=== PATIENT | female | born 1995 | race Caucasian/White ===

== ENCOUNTER 2016-08-14 15:59 | Emergency (ER) | payer SELFPAY ==
[~2016-08-14] VITALS: Ht 165.1 cm; Wt 59.0 kg
[2016-08-14 17:14] LABS: NEG OBC UR NEG; POS OBC UR POS
[2016-08-14 17:19] LABS: BILIRUBIN,URINE SMALL (NEG); GLUCOSE,URINE NEGATIVE (NEG); NITRITE,URINE NEGATIVE (NEG); PROTEIN,URINE 100 mg/dL (NEG-TRACE); UROBILINOGEN,URINE 0.2 mg/dL (0.2 mg/dL)
[2016-08-14] MEDS ORDERED: ONDANSETRON PF 4 MG/2 ML VIAL. IV ONE (17:30)
[2016-08-14] MEDS ORDERED: IV NORMAL SALINE 500ML BAG 500 ML IV ONE ×2 (17:30→19:15)
[2016-08-14] MEDS ORDERED: KETOROLAC TROMETHAMINE 30 MG/ML SYRINGE. IV ONE (17:30)
[2016-08-14 17:47] LABS: BASO # 0.1 x10^3/uL (0.0-0.2); BASO % 2 % (0-3); EOS % 5 % (0-3); HEMATOCRIT 38.8 % (36.0-47.0); HEMOGLOBIN 12.8 g/dL (12.0-15.5); LYMPH # 3.1 x10^3/uL (1.0-4.8); LYMPH % 32 % (24-48); MEAN CORPUSCULAR HEMOGLOBIN 27 pg (25-35); MEAN CORPUSCULAR HGB CONC 33 g/dL (31-37); MEAN CORPUSCULAR VOLUME 81 fL (79-100); MONO % 8 % (0-9); NEUT % 54 % (31-73); PLATELET COUNT 273 x10^3/uL (140-400); RED BLOOD COUNT 4.76 x10^6/uL (3.50-5.40); RED CELL DISTRIBUTION WIDTH 14.7 % (11.5-14.5)
[2016-08-14 17:48] LABS: BACTERIA,URINE MANY /HPF (0-FEW); SQUAMOUS EPITHELIAL CELL,UR MANY /LPF; WBC,URINE TNTC /HPF (0-4)
[2016-08-14 18:03] LABS: CALCIUM 9.3 mg/dL (8.5-10.1); GFR 68.7; POTASSIUM 3.7 mmol/L (3.5-5.1)
--- NOTE | 2016-08-14 18:07 | EKG ---
[facility] [address] [place] [address] Test Date: 2016-08-14 Test Time: 17:38:33 Pat Name: MERRILL ALMANZAR Department: Room: Gender: F Personnel Technician: : 1995 Requested By: ROMARIO COOL Order Number: [id number] Reading MD: Mikey Kent Measurements Intervals [place] Rate: 92 P: 60 GA: 126 QRS: 75 QRSD: 78 T: 40 QT: 350 QTc: 438 Interpretive Statements SINUS RHYTHM Electronically Signed On 08-15-2016 7:45:12 [employer] by Mikey Kent
[2016-08-14] MEDS ORDERED: CONTRAST GIVEN MC PRN (18:15)
[2016-08-14] MEDS ORDERED: IOHEXOL 300 MG/ML 75 ML VIAL IV ONE (18:15)
[2016-08-14] MEDS ORDERED: CEFTRIAXONE 1GM IVPB FOR OMNI 50 ML IV ONE (19:15)
--- NOTE | 2016-08-14 19:17 | RAD ---
CT abdomen pelvis with contrast Indication: Right and left lower quadrant abdominal pain. Axial imaging through the abdomen and pelvis was performed after the administration of intravenous contrast. No prior studies are available for comparison. The lung bases are clear. The liver and gallbladder are unremarkable. The pancreas and spleen are unremarkable. No adrenal mass is detected. The kidneys are unremarkable. The small and large bowel loops are normal caliber. There is no ascites. The appendix is visualized and unremarkable. There is a large cyst in the right adnexa measuring 3.7 centimeters in diameter and likely an ovarian cyst. The uterus and bladder are unremarkable. Trace free fluid is seen. Impression: 3.7 centimeter right adnexal cyst, likely ovarian. The study is otherwise unremarkable. Electronically signed by: Santiago Billings MD (Aug 14, 2016 19:16:28)
[2016-08-14] MEDS ORDERED: IBUP-1060 PO (19:36)
[2016-08-14] MEDS ORDERED: NITR100C62 PO (19:36)
--- NOTE | 2016-08-14 19:36 | PHYS DOC ---
Past Medical History Past Medical History: Anxiety, Asthma, Bipolar, Depression, Other Additional Past Medical Histor: SCOLIOSIS, PTSD Past Surgical History: Other Additional Past Surgical Histo: 'SOME SURGERY ON MY HEAD WHEN I WAS A KID' Alcohol Use: None Drug Use: Marijuana, Methamphetamine Social History Narrative: 'I DO EVERYTHING BUT HEROIN' Adult General Chief Complaint Chief Complaint: DIZZY/LIGHT HEADED HPI HPI 21-year-old female who is had ongoing right lower abdominal pain with dizziness and lightheadedness today. Patient was in the process of checking in for med 3 have as she admits to using methamphetamines earlier today as well as benzodiazepines. She has had history of meth abuse in the past. Currently she denies any suicidal or homicidal ideation. She rates her pain approximately a 7 out of 10 on the pain scale localized the right lower quadrant. She denies any history of abdominal surgeries. She also states she has some mild chest discomfort and is having mild anxiety symptoms. Review of Systems Review of Systems Constitutional: Denies fever or chills [] Eyes: Denies change in visual acuity, redness, or eye pain [] HENT: Denies nasal congestion or sore throat [] Respiratory: Denies cough or shortness of breath [] Cardiovascular: No additional information not addressed in HPI [] GI: Has abdominal pain, denies nausea, denies vomiting, bloody stools or diarrhea [] : Denies dysuria or hematuria [] Musculoskeletal: Denies back pain or joint pain [] Integument: Denies rash or skin lesions [] Neurologic: Denies headache, focal weakness or sensory changes [] Endocrine: Denies polyuria or polydipsia [] Current Medications Current Medications Current Medications Medications (Trade) Dose Ordered Sig/Brissa Start Time Stop Time Status Last Admin Dose Admin Ceftriaxone Sodium (Rocephin 1gm Ivpb For Omni) 50 ml @ 100 mls/hr 1X ONCE 08/14/16 19:15 08/14/16 19:44 Info 1 each 1 each PRN DAILY PRN 08/14/16 18:15 08/16/16 18:14 Iohexol (Omnipaque 300 Mg/ml) 75 ml 1X ONCE 08/14/16 18:15 08/14/16 18:16 DC 08/14/16 18:49 75 ML Ketorolac Tromethamine 30 mg 30 mg 1X ONCE 08/14/16 17:30 08/14/16 17:31 DC 08/14/16 18:13 30 MG Ondansetron HCl (Zofran) 4 mg 1X ONCE 08/14/16 17:30 08/14/16 17:31 DC 08/14/16 18:13 4 MG Sodium Chloride 500 ml @ 500 mls/hr 1X ONCE 08/14/16 19:15 08/14/16 20:14 Sodium Chloride (Iv Sodium Chloride 0.9% 500ml Bag) 500 ml @ 500 mls/hr 1X ONCE 08/14/16 17:30 08/14/16 18:29 DC 08/14/16 18:14 500 MLS/HR Allergies Allergies Allergies Coded Allergies Type Severity Reaction Last Updated Verified levofloxacin Allergy Intermediate Swelling 08/14/16 Yes Physical Exam Physical Exam Constitutional: Well developed, well nourished, no acute distress, non-toxic appearance. [] HENT: Normocephalic, atraumatic, bilateral external ears normal, oropharynx moist, no oral exudates, nose normal. [] Eyes: PERRLA, EOMI, conjunctiva normal, no discharge. [] Neck: Normal range of motion, no tenderness, supple, no stridor. [] Cardiovascular:Heart rate tachycardic with regular rhythm, no murmur [] Lungs & Thorax: Bilateral breath sounds clear to auscultation [] Abdomen: Bowel sounds normal, soft, moderate tenderness to RLQ, no masses, no pulsatile masses. [] Skin: Warm, dry, no erythema, no rash. [] Back: No tenderness, no CVA tenderness. [] Extremities: No tenderness, no cyanosis, no clubbing, ROM intact, no edema. [] Neurologic: Alert and oriented X 3, normal motor function, normal sensory function, no focal deficits noted. [] Psychologic: Affect normal, judgement normal, mood normal. [] Current Patient Data Vital Signs Vital Signs Date Time Temp Pulse Resp B/P Pulse Ox O2 Delivery O2 Flow Rate FiO2 08/14/16 18:24 104 20 101/52 98 Room Air 08/14/16 16:41 98.3 98.3 Lab Values Laboratory Tests Test 08/14/16 16:33 08/14/16 17:29 Urine Collection Type Void Urine Color Dk yellow Urine Clarity Cloudy Urine pH 6.0 Urine Specific [place] >=1.030 Urine Protein 100mg/dL (NEG-TRACE) Urine Glucose (UA) Negativemg/dL (NEG) Urine Ketones (Stick) Negativemg/dL (NEG) Urine Blood Moderate (NEG) Urine Nitrite Negative (NEG) Urine Bilirubin Small (NEG) Urine Urobilinogen Dipstick 0.2mg/dL (0.2 mg/dL) Urine Leukocyte Esterase Moderate (NEG) Urine RBC 1-2/HPF (0-2) Urine WBC Tntc/HPF (0-4) Urine Squamous Epithelial Cells Many/LPF Urine Bacteria Many/HPF (0-FEW) Urine Mucus Marked/LPF Urine Test Negative (NEG) White Blood Count 10.0x10^3/uL (4.0-11.0) Red Blood Count 4.76x10^6/uL (3.50-5.40) Hemoglobin 12.8g/dL (12.0-15.5) Hematocrit 38.8% (36.0-47.0) Mean Corpuscular Volume 81fL (79-100) Mean Corpuscular Hemoglobin 27pg (25-35) Mean Corpuscular Hemoglobin Concent 33g/dL (31-37) Red Cell Distribution Width 14.7% (11.5-14.5) H Platelet Count 273x10^3/uL (140-400) Neutrophils (%) (Auto) 54% (31-73) Lymphocytes (%) (Auto) 32% (24-48) Monocytes (%) (Auto) 8% (0-9) Eosinophils (%) (Auto) 5% (0-3) H Basophils (%) (Auto) 2% (0-3) Neutrophils # (Auto) 5.4x10^3uL (1.8-7.7) Lymphocytes # (Auto) 3.1x10^3/uL (1.0-4.8) Monocytes # (Auto) 0.8x10^3/uL (0.0-1.1) Eosinophils # (Auto) 0.5x10^3/uL (0.0-0.7) Basophils # (Auto) 0.1x10^3/uL (0.0-0.2) Sodium Level 143mmol/L (136-145) Potassium Level 3.7mmol/L (3.5-5.1) Chloride Level 105mmol/L (98-107) Carbon Dioxide Level 31mmol/L (21-32) Anion Gap 7 (6-14) Blood Urea Nitrogen 18mg/dL (7-20) Creatinine 1.0mg/dL (0.6-1.0) Estimated GFR (Cockcroft-Gault) 68.7 Glucose Level 79mg/dL (70-99) Calcium Level 9.3mg/dL (8.5-10.1) Lipase 102U/L (73-393) Laboratory Tests 08/14/16 17:29 Laboratory Tests 08/14/16 17:29 EKG EKG EKG as interpreted by me shows a sinus rhythm with rate of 92 bpm. There are no acute ST findings on this EKG. Radiology/Procedures Radiology/Procedures CT of the abdomen/pelvis with IV contrast demonstrates the following: CT abdomen pelvis with contrast Indication: Right and left lower quadrant abdominal pain. Axial imaging through the abdomen and pelvis was performed after the administration of intravenous contrast. No prior studies are available for comparison. The lung bases are clear. The liver and gallbladder are unremarkable. The pancreas and spleen are unremarkable. No adrenal mass is detected. The kidneys are unremarkable. The small and large bowel loops are normal caliber. There is no ascites. The appendix is visualized and unremarkable. There is a large cyst in the right adnexa measuring 3.7 centimeters in diameter and likely an ovarian cyst. The uterus and bladder are unremarkable. Trace free fluid is seen. Impression: 3.7 centimeter right adnexal cyst, likely ovarian. The study is otherwise unremarkable. One view of the chest as interpreted by me did not reveal any acute cardiopulmonary abnormality. Course & Med Decision Making Course & Med Decision Making Pertinent Labs and Imaging studies reviewed. (See chart for details) This 21-year-old female had a negative laboratory workup any abdominal CT that demonstrated a right adnexal cyst which is likely the source for pain. I will be discharging her with a course of anti-inflammatories as well as a antibiotic for her UTI which was demonstrated with large amounts of WBCs on urinalysis. I also had the psychiatric assessment team come in to assess her for her methadone abuse and they stated that she can check into the [facility] rehabilitation facility on discharge for her ongoing meth abuse. She will have to call for this assessment. The psychiatric assessment team did not believe she was suicidal or homicidal. She will be discharged without incident for the diagnosis of UTI and right adnexal cyst and meth abuse. Dragon Disclaimer Dragon Disclaimer This electronic medical record was generated, in whole or in part, using a voice recognition dictation system. Departure Departure Impression: Primary Impression: UTI (urinary tract infection) Additional Impressions: Ovarian cyst Methamphetamine abuse Disposition: HOME, SELF-CARE Admitting Physician: Other Condition: IMPROVED Referrals: NO PCP (PCP) Patient Instructions: Methamphetamine Abuse, Complications, Ovarian Cyst, Urinary Tract Infection, [id number] Additional Instructions: Please take your medications as prescribed and obtain evaluation at the [facility] facility as discussed. Return to the ER if you develop any worsening of your symptoms despite medications. Scripts Nitrofurantoin Monohyd/M-Cryst (Macrobid 100 Mg Capsule)100 Mg [id number] Mg PO BID #10 Prov:ROMARIO COOL DO 08/14/16 Ibuprofen 800 Mg [id number] Mg PO PRN Q6HRS PRN INFLAMMATION #20 TAB Prov:ROMARIO COOL DO 08/14/16 Problem Qualifiers ROMARIO COOL DO Aug 14, 2016 19:36
[2016-08-14 20:02] VITALS: BP 114/68
[2016-08-14 23:07] LABS: BARBITURATES NEG (NEG); BENZODIAZEPINES NEG (NEG); CANNABINOIDS POS (NEG); COCAINE NEG (NEG); ETHANOL, URINE NEG (NEG); METHADONE NEG (NEG); OPIATES NEG (NEG); PHENCYCLIDINE NEG (NEG)
--- NOTE | 2016-08-15 07:45 | RAD ---
Portable chest, 08/14/2016: History: Chest pain, asthma The heart size and pulmonary vascularity are normal. No pulmonary infiltrates are seen. There is no evidence of pleural fluid. There is a minimal thoracic scoliosis. IMPRESSION: No acute cardiopulmonary abnormality is detected.
== END 2016-08-14 20:06 | disposition home or self-care (01) ==
LOC: ER 15:59
DX: N39.0 Urinary tract infection, site not specified (principal); N83.201 Unspecified ovarian cyst, right side; F15.10 Other stimulant abuse, uncomplicated; R07.89 Other chest pain; R42 Dizziness and giddiness; F31.9 Bipolar disorder, unspecified; J45.909 Unspecified asthma, uncomplicated; F41.9 Anxiety disorder, unspecified; F43.10 Post-traumatic stress disorder, unspecified; F12.10 Cannabis abuse, uncomplicated; Z88.1 Allergy status to other antibiotic agents
CPT/HCPCS: 36415; 71010; 74177; 80048; 81001; 81025; 83690; 85027; 87086; 93005; 96365; 96375; 99285; G0481; J0690; J1885; J2405; J7040; Q9967